=== PATIENT | male | born 1970 | race Two or more races ===

== ENCOUNTER 2016-08-31 22:44 | Emergency (ER) | payer MEDICARE, MEDICAID ==
[~2016-08-31] VITALS: Ht 177.8 cm; Wt 64.0 kg
[~2016-08-31 22:44] MED LIST: CLON0.5T4 PO; DOCU-272 PO; FOLI-43 PO; LAMO150T PO; LEVE10006 PO; OLAN10TA19 PO; OLAN20TA16 PO; TRAZ150T78 PO
[2016-09-01 01:13] LABS: CHLORIDE 101 mEq/L (98-107)
[2016-09-01 01:14] LABS: BASOPHILS % 0.5 % (0.0-2.0); EOSINOPHILS % 2.8 % (0.0-5.0); HEMATOCRIT. 37.3 % (42.0-52.0); HEMOGLOBIN. 12.9 g/dL (14.0-18.0); LYMPHOCYTES % 18.3 % (20.0-50.0); MEAN CORPUSCULAR VOLUME 95.3 fL (80.0-94.0); MEAN PLATELET VOLUME 8.4 fl (7.4-10.4); MONOCYTES % 5.3 % (2.0-8.0); NEUTROPHILS % 73.1 % (40.0-76.0); PLATELET 281 x1000/uL (130-400); RED BLOOD CELL COUNT 3.91 mill/uL (4.7-6.1); RED CELL DISTRIBUTION WIDTH 12.6 % (11.6-14.6)
[2016-09-01 01:23] LABS: CARBON DIOXIDE 30 mEq/L (21-32)
[2016-09-01 05:15] VITALS: BP 119/74
== END 2016-09-01 04:50 | disposition home or self-care (01) ==
LOC: ER 23:57
DX: R42 Dizziness and giddiness (principal); D64.9 Anemia, unspecified; G40.909 Epilepsy, unspecified, not intractable, without status epilepticus; Z79.899 Other long term (current) drug therapy
CPT/HCPCS: 36415; 70450; 80053; 85025; 99285

== ENCOUNTER 2019-11-18 12:17 | Emergency (ER) | payer MEDICARE, MEDICAID ==
[~2019-11-18] VITALS: Ht 165.1 cm; Wt 63.0 kg
[~2019-11-18 12:17] MED LIST changes: -LAMO150T PO; +LAMO150T5 PO; -OLAN20TA16 PO; +OLAN20TA34 PO
[2019-11-18] MEDS ORDERED: KETOROLAC 30MG/ML VIAL IV STA (14:25)
[2019-11-18] MEDS ORDERED: SODIUM CHLORIDE 0.9% 1,000 ML IV ONE (14:25)
[2019-11-18 14:52] LABS: CLARITY URINE CLOUDY (CLEAR); COLOR URINE DARK YELLOW (YELLOW); KETONES URINE TRACE (NEGATIVE); LEUKOCYTE ESTERASE URINE NEGATIVE (NEGATIVE); NITRITE URINE NEGATIVE (NEGATIVE); OCCULT BLOOD URINE NEGATIVE (NEGATIVE); PH URINE 6.5 (4.5-8.0); PROTEIN URINE NEGATIVE (NEGATIVE); SPECIFIC GRAVITY URINE 1.027 (1.005-1.030)
[2019-11-18 14:53] LABS: BASOPHILS % 0.3 % (0.0-2.0); EOSINOPHILS % 0.4 % (0.0-5.0); HEMATOCRIT. 39.1 % (42.0-52.0); HEMOGLOBIN. 13.5 g/dL (14.0-18.0); LYMPHOCYTES % 41.3 % (20.0-50.0); MEAN CORPUSCULAR HEMOGLOBIN 35.4 pg (28.0-32.0); MEAN CORPUSCULAR VOLUME 102.8 fL (80.0-94.0); MONOCYTES % 7.8 % (2.0-8.0); NEUTROPHILS % 50.2 % (40.0-76.0); PLATELET 231 x1000/uL (130-400); RED BLOOD CELL COUNT 3.81 mill/uL (4.7-6.1); RED CELL DISTRIBUTION WIDTH 12.1 % (11.6-14.6)
[2019-11-18 14:58] LABS: CHLORIDE 105 mEq/L (98-107)
[2019-11-18 16:40] VITALS: BP 125/70
== END 2019-11-18 16:50 | disposition home or self-care (01) ==
LOC: ER 12:17
DX: N39.0 Urinary tract infection, site not specified (principal); N20.0 Calculus of kidney; L89.101 Pressure ulcer of unspecified part of back, stage 1; G40.909 Epilepsy, unspecified, not intractable, without status epilepticus; F79 Unspecified intellectual disabilities; Z91.81 History of falling
CPT/HCPCS: 36415; 71045; 74176; 80053; 81003; 83690; 85025; 93005; 96361; 96374; 99285; J1885; J7030

== ENCOUNTER 2020-02-05 02:05 | Emergency (ER) | payer MEDICARE, MEDICAID ==
[~2020-02-05] VITALS: Ht 170.2 cm; Wt 51.0 kg
[2020-02-05] MEDS ORDERED: LIDOCAINE HCL/PF 1% 10 MG/ML 5ML VIAL IJ ONE (04:00)
[2020-02-05] MEDS ORDERED: ACETAMINOPHEN 325MG TABLET PO ONE (04:45)
[2020-02-05 05:20] VITALS: BP 125/78
== END 2020-02-05 05:53 | disposition home or self-care (01) ==
LOC: ER 02:05
DX: S01.512A Laceration without foreign body of oral cavity, initial encounter (principal); Z79.899 Other long term (current) drug therapy; W01.0XXA Fall on same level from slipping, tripping and stumbling without subsequent striking against object, initial encounter; Y93.89 Activity, other specified; Y92.89 Other specified places as the place of occurrence of the external cause; Y99.8 Other external cause status
CPT/HCPCS: 12013; 99282; J3490

== ENCOUNTER 2020-09-30 15:48 | Inpatient (IN) | payer MEDICARE, MEDICAID ==
[~2020-09-30] VITALS: Ht 165.1 cm; Wt 60.3 kg
[2020-09-30 17:02] LABS: BASOPHILS % 0.2 % (0.0-2.0); EOSINOPHILS % 0.5 % (0.0-5.0); HEMATOCRIT. 34.8 % (42.0-52.0); HEMOGLOBIN. 12.3 g/dL (14.0-18.0); LYMPHOCYTES % 23.5 % (20.0-50.0); MEAN CORPUSCULAR HEMOGLOBIN 36.9 pg (28.0-32.0); MEAN CORPUSCULAR VOLUME 104.2 fL (80.0-94.0); MEAN PLATELET VOLUME 7.4 fl (7.4-10.4); MONOCYTES % 9.7 % (2.0-8.0); NEUTROPHILS % 66.1 % (40.0-76.0); PLATELET 304 x1000/uL (130-400); RED BLOOD CELL COUNT 3.34 mill/uL (4.7-6.1); RED CELL DISTRIBUTION WIDTH 12.5 % (11.6-14.6)
[2020-09-30 17:48] LABS: CLARITY URINE CLOUDY (CLEAR); COLOR URINE DARK YELLOW (YELLOW); KETONES URINE TRACE (NEGATIVE); LEUKOCYTE ESTERASE URINE TRACE (NEGATIVE); NITRITE URINE NEGATIVE (NEGATIVE); OCCULT BLOOD URINE NEGATIVE (NEGATIVE); PROTEIN URINE TRACE (NEGATIVE); SPECIFIC GRAVITY URINE 1.033 (1.005-1.030); UROBILINOGEN URINE 0.2 E.U./dL (0.2-1.0)
[2020-09-30 19:31] LABS: CHLORIDE 106 mEq/L (98-107)
[2020-09-30] MEDS ORDERED: AZITHROMYCIN 500 MG in DEXT 5% WATER 250 ML IV ONE (20:45)
[2020-09-30] MEDS ORDERED: CEFTRIAXONE 1 G PREMIX 50 ML IV ONE (20:45)
[2020-09-30] MEDS ORDERED: GUAIFENESIN 200MG/10ML SUGAR FREE UDC PO PRN (22:30)
[2020-09-30] MEDS ORDERED: AZITHROMYCIN 500 MG in DEXT 5% WATER 250 ML IV SCH (22:30)
[2020-09-30] MEDS ORDERED: HYDROCODONE/ACETAMINOPHEN 5/325MG TABLET PO PRN (22:30)
[2020-09-30] MEDS ORDERED: MAGNESIUM/ALUMINUM HYDROXIDE/SIMETHICONE 30ML UDC PO PRN (22:30)
[2020-09-30] MEDS ORDERED: NA PHOS,M-B/NA PHOS,DI-BA ENEMA 118ML PR PRN (22:30)
[2020-09-30] MEDS ORDERED: DOCUSATE SODIUM 100MG CAPSULE PO PRN (22:30)
[2020-09-30] MEDS ORDERED: CLONIDINE 0.1MG TABLET PO PRN (22:30)
[2020-09-30] MEDS ORDERED: ACETAMINOPHEN 325MG TABLET PO PRN (22:30)
[2020-09-30] MEDS ORDERED: ONDANSETRON HCL 4MG/2ML INJ IV PRN (22:30)
[2020-09-30] MEDS ORDERED: IPRATROPIUM/ALBUTEROL 0.5-3(2.5)MG/3ML NEB NEB PRN (22:30)
[2020-09-30] MEDS: SODIUM CHLORIDE 0.45% 1,000 ML IV SCH (23:00)
[2020-09-30] MEDS: ENOXAPARIN 40MG/0.4ML SYR SUBCUT SCH (23:02)
[2020-10-01 01:00] VITALS: BP_SYST 109; BP_SYST 130; BP_DIAS 63; BP_DIAS 80
[2020-10-01 04:00] VITALS: BP 115/70
[2020-10-01] MEDS: SODIUM CHLORIDE 0.45% 1,000 ML IV SCH (04:49)
[2020-10-01 07:05] LABS: BASOPHILS % 0.4 % (0.0-2.0); EOSINOPHILS % 0.9 % (0.0-5.0); HEMATOCRIT. 34.3 % (42.0-52.0); LYMPHOCYTES % 36.5 % (20.0-50.0); MEAN CORPUSCULAR HEMOGLOBIN 36.4 pg (28.0-32.0); MEAN CORPUSCULAR VOLUME 104.1 fL (80.0-94.0); MEAN PLATELET VOLUME 7.5 fl (7.4-10.4); MONOCYTES % 11.3 % (2.0-8.0); NEUTROPHILS % 50.9 % (40.0-76.0); PLATELET 274 x1000/uL (130-400)
[2020-10-01 07:12] LABS: CHLORIDE 104 mEq/L (98-107)
[2020-10-01 07:21] LABS: LDL CHOLESTEROL 85 mg/dL (5-100)
[2020-10-01 07:22] LABS: T4 FREE 0.98 ng/dL (0.76-1.46)
[2020-10-01 07:23] LABS: HDL CHOLESTEROL 52 mg/dL (40-59)
[2020-10-01 08:14] VITALS: BP 125/66
[2020-10-01] MEDS ORDERED: DIVA-75 PO (09:09)
[2020-10-01] MEDS ORDERED: OLAN10TA19 PO ×3 (09:09→09:44)
[2020-10-01] MEDS ORDERED: LEVE1000 PO (09:09)
[2020-10-01] MEDS ORDERED: METO25TA6 PO (09:09)
[2020-10-01] MEDS ORDERED: LURA80TA PO (09:09)
[2020-10-01] MEDS ORDERED: FLUT15.844 BOTHNSTRLS (09:09)
[2020-10-01] MEDS ORDERED: LURA20TA PO (09:09)
[2020-10-01] MEDS ORDERED: MIRT-91 PO (09:09)
[2020-10-01] MEDS ORDERED: BENZ100C86 PO (09:09)
[2020-10-01] MEDS ORDERED: PRAMIPEXOLE PO (09:09)
[2020-10-01] MEDS ORDERED: TRAZ-252 PO (09:09)
[2020-10-01] MEDS ORDERED: DIVA-73 PO (09:09)
[2020-10-01] MEDS ORDERED: MEDICATION NOT ON FORMULARY EA (Levetiracetam (Keppra) 1,000 MG) PO SCH (09:45)
[2020-10-01] MEDS: METOPROLOL TARTRATE 25MG TABLET PO SCH ×2 (10:44→21:20)
[2020-10-01] MEDS: FOLIC ACID 1MG TABLET PO SCH (10:44)
[2020-10-01] MEDS: OLANZAPINE 10MG TABLET PO SCH ×3 (10:44→16:38)
[2020-10-01] MEDS: CLONAZEPAM 0.5MG TABLET PO SCH ×2 (10:45→21:19)
[2020-10-01] MEDS: DOCUSATE SODIUM 100MG CAPSULE PO SCH ×2 (10:45→21:21)
[2020-10-01] MEDS: ASPIRIN 81MG EC TABLET PO SCH (10:45)
[2020-10-01] MEDS: LEVETIRACETAM 500MG TABLET PO SCH ×2 (10:51→21:20)
[2020-10-01 12:06] VITALS: BP 135/81
[2020-10-01] MEDS: PRAMIPEXOLE DI-HCL 0.25MG TABLET PO SCH ×2 (12:14→21:19)
[2020-10-01] MEDS: LAMOTRIGINE 150MG TABLET PO SCH ×2 (12:15→21:21)
[2020-10-01] MEDS: FLUTICASONE PROPIONATE 50MCG/SPRAY BOTTLE BOTHNSTRLS SCH (12:15)
[2020-10-01] MEDS: DIVALPROEX SODIUM 500MG DR TABLET PO SCH (12:15)
[2020-10-01 15:47] VITALS: BP 112/73
[2020-10-01] MEDS ORDERED: MEDICATION NOT ON FORMULARY EA (Lurasidone Hcl (Latuda) 20 MG) PO SCH (17:00)
[2020-10-01] MEDS ORDERED: LURASIDONE HCL 80 MG PO SCH (17:00)
[2020-10-01 20:00] VITALS: BP 113/72
[2020-10-01] MEDS: LORAZEPAM 2MG/ML CPJ IV PRN (21:18)
[2020-10-01] MEDS: ENOXAPARIN 40MG/0.4ML SYR SUBCUT SCH (21:18)
[2020-10-01] MEDS: AZITHROMYCIN 500MG in DEXTROSE 5% WATER 250ML IV SCH (21:19)
[2020-10-01] MEDS: TRAZODONE HCL 50MG TABLET PO SCH (21:20)
[2020-10-01] MEDS: DIVALPROEX SODIUM 250MG DR TABLET PO SCH (21:20)
[2020-10-01] MEDS: MIRTAZAPINE 15MG TABLET PO SCH (21:40)
[2020-10-01] MEDS: MORPHINE SULFATE 2 MG/ML CPJ (NOT FOR IM USE) IV PRN (22:11)
[2020-10-01] MEDS: DIPHENHYDRAMINE 50MG/ML VIAL IV PRN (22:16)
[2020-10-01] MEDS ORDERED: AZTREONAM 500MG in DEXTROSE 5% WATER 50ML IV SCH (23:30)
[2020-10-02] VITALS: BP 105/68
[2020-10-02] MEDS: LORAZEPAM 2MG/ML CPJ IV PRN (01:26)
[2020-10-02] MEDS: MORPHINE SULFATE 2 MG/ML CPJ (NOT FOR IM USE) IV PRN (02:19)
[2020-10-02] MEDS: DIPHENHYDRAMINE 50MG/ML VIAL IV PRN (02:20)
[2020-10-02 04:00] VITALS: BP 107/72
[2020-10-02 08:00] VITALS: BP 116/69
[2020-10-02] MEDS ORDERED: OLANZAPINE 10MG TABLET PO SCH (09:00)
[2020-10-02] MEDS: CLONAZEPAM 0.5MG TABLET PO SCH ×2 (10:41→20:33)
[2020-10-02] MEDS: OLANZAPINE 10MG TABLET PO SCH ×2 (10:41→16:42)
[2020-10-02] MEDS: PRAMIPEXOLE DI-HCL 0.25MG TABLET PO SCH ×2 (10:41→20:33)
[2020-10-02] MEDS: DIVALPROEX SODIUM 500MG DR TABLET PO SCH (10:41)
[2020-10-02] MEDS: LAMOTRIGINE 150MG TABLET PO SCH ×2 (10:41→20:33)
[2020-10-02] MEDS: DOCUSATE SODIUM 100MG CAPSULE PO SCH ×2 (10:41→16:42)
[2020-10-02] MEDS: ASPIRIN 81MG EC TABLET PO SCH (10:41)
[2020-10-02] MEDS: LEVETIRACETAM 500MG TABLET PO SCH ×3 (10:41→20:34)
[2020-10-02] MEDS: FOLIC ACID 1MG TABLET PO SCH (10:44)
[2020-10-02] MEDS: METOPROLOL TARTRATE 25MG TABLET PO SCH ×2 (10:44→20:35)
[2020-10-02] MEDS: FLUTICASONE PROPIONATE 50MCG/SPRAY BOTTLE BOTHNSTRLS SCH (10:45)
[2020-10-02 16:00] VITALS: BP 119/69
[2020-10-02] MEDS: DIVALPROEX SODIUM 250MG DR TABLET PO SCH (20:33)
[2020-10-02] MEDS: MIRTAZAPINE 15MG TABLET PO SCH (20:33)
[2020-10-02] MEDS: TRAZODONE HCL 50MG TABLET PO SCH (20:33)
[2020-10-02 20:46] VITALS: BP 108/65
[2020-10-02] MEDS: AZITHROMYCIN 500MG in DEXTROSE 5% WATER 250ML IV SCH (21:00)
[2020-10-02] MEDS: ENOXAPARIN 40MG/0.4ML SYR SUBCUT SCH (22:14)
[2020-10-03 00:27] VITALS: BP 114/71
[2020-10-03 04:00] VITALS: BP 118/72
[2020-10-03] MEDS: SODIUM CHLORIDE 0.45% 1,000 ML IV SCH ×2 (05:30→21:32)
[2020-10-03] MEDS: LEVETIRACETAM 500MG TABLET PO SCH ×3 (05:35→21:31)
[2020-10-03 08:00] VITALS: BP 163/70
[2020-10-03] MEDS: DOCUSATE SODIUM 100MG CAPSULE PO SCH ×2 (09:16→18:12)
[2020-10-03] MEDS: LAMOTRIGINE 150MG TABLET PO SCH ×2 (09:16→20:34)
[2020-10-03] MEDS: ASPIRIN 81MG EC TABLET PO SCH (09:16)
[2020-10-03] MEDS: FOLIC ACID 1MG TABLET PO SCH (09:16)
[2020-10-03] MEDS: PRAMIPEXOLE DI-HCL 0.25MG TABLET PO SCH ×2 (09:17→20:34)
[2020-10-03] MEDS: DIVALPROEX SODIUM 500MG DR TABLET PO SCH (09:17)
[2020-10-03] MEDS: CLONAZEPAM 0.5MG TABLET PO SCH ×2 (09:17→20:33)
[2020-10-03] MEDS: OLANZAPINE 10MG TABLET PO SCH ×2 (09:17→18:12)
[2020-10-03] MEDS: METOPROLOL TARTRATE 25MG TABLET PO SCH ×2 (09:17→20:34)
[2020-10-03 12:00] VITALS: BP 117/72
[2020-10-03] MEDS: FLUTICASONE PROPIONATE 50MCG/SPRAY BOTTLE BOTHNSTRLS SCH (14:09)
[2020-10-03 16:00] VITALS: BP 118/75
[2020-10-03 20:00] VITALS: BP 115/82
[2020-10-03] MEDS: DIVALPROEX SODIUM 250MG DR TABLET PO SCH (20:33)
[2020-10-03] MEDS: TRAZODONE HCL 50MG TABLET PO SCH (20:33)
[2020-10-03] MEDS: MIRTAZAPINE 15MG TABLET PO SCH (20:34)
[2020-10-03] MEDS ORDERED: AZITHROMYCIN 500 MG TABLET PO SCH (21:00)
[2020-10-03] MEDS: ENOXAPARIN 40MG/0.4ML SYR SUBCUT SCH (21:32)
[2020-10-04] VITALS: BP 116/79
[2020-10-04 04:00] VITALS: BP 124/68
[2020-10-04] MEDS: LEVETIRACETAM 500MG TABLET PO SCH ×2 (05:31→14:40)
[2020-10-04 08:00] VITALS: BP 112/73
[2020-10-04] MEDS: DIVALPROEX SODIUM 500MG DR TABLET PO SCH (09:49)
[2020-10-04] MEDS: OLANZAPINE 10MG TABLET PO SCH (09:49)
[2020-10-04] MEDS: CLONAZEPAM 0.5MG TABLET PO SCH (09:49)
[2020-10-04] MEDS: ASPIRIN 81MG EC TABLET PO SCH (09:49)
[2020-10-04] MEDS: DOCUSATE SODIUM 100MG CAPSULE PO SCH (09:49)
[2020-10-04] MEDS: METOPROLOL TARTRATE 25MG TABLET PO SCH (09:50)
[2020-10-04] MEDS: FOLIC ACID 1MG TABLET PO SCH (09:50)
[2020-10-04] MEDS: PRAMIPEXOLE DI-HCL 0.25MG TABLET PO SCH (09:56)
[2020-10-04] MEDS: LAMOTRIGINE 150MG TABLET PO SCH (09:56)
[2020-10-04] MEDS: FLUTICASONE PROPIONATE 50MCG/SPRAY BOTTLE BOTHNSTRLS SCH (09:56)
[2020-10-04 11:43] VITALS: BP 112/73
[2020-10-04 12:00] VITALS: BP 100/54
== END 2020-10-04 16:32 | disposition home or self-care (01) | DRG 177 ==
LOC: ER 15:48 → 6WST 20:33 → EDBEDREQTM 20:37 → EDBEDREQ 20:37 → ENRESERV 23:59 → 6WST 10-01 01:00
PROVIDERS: ADMIT Internal Medicine; ATTEND Internal Medicine
DX: J69.0 Pneumonitis due to inhalation of food and vomit (principal); G93.41 Metabolic encephalopathy; E46 Unspecified protein-calorie malnutrition; G40.909 Epilepsy, unspecified, not intractable, without status epilepticus; I10 Essential (primary) hypertension; R62.50 Unspecified lack of expected normal physiological development in childhood; Z79.899 Other long term (current) drug therapy; Z68.22 Body mass index [BMI] 22.0-22.9, adult
CPT/HCPCS: 36415; 71045; 80053; 80061; 81003; 83880; 84439; 84443; 84484; 85025; 93005; 93970; 99291; J0456; J0696; J1200; J1650; J2060; J2270; J7060